=== PATIENT | female | born 1940 | race Caucasian/White ===

== ENCOUNTER 2019-08-06 18:14 | Emergency (ER) | payer MEDICARE, OTHER ==
[~2019-08-06] VITALS: Ht 165.1 cm; Wt 67.1 kg
[2019-08-06] MEDS ORDERED: CLONIDINE HCL 0.1 MG TABLET PO ONE ×2 (18:45→19:00)
[2019-08-06] MEDS ORDERED: CLONIDINE HCL 0.1 MG TABLET ONE (18:49)
[2019-08-06 18:51] LABS: *BILIRUBIN,URIN NEGATIVE (NEGATIVE); *BLOOD, URINE NEGATIVE (NEGATIVE); *CLARITY,URINE CLEAR (CLEAR); *COLOR,URINE LIGHT YELLOW (YELLOW); *KETONES,URINE NEGATIVE (NEGATIVE); *UROBILINOGEN,URINE 0.2 E.U./dl (NORMAL); LEUKOCYTE ESTERASE ,URINE NEGATIVE (NEGATIVE); NITRITE, URINE NEGATIVE (NEGATIVE); UGLUCOSE NEGATIVE (NEGATIVE)
[2019-08-06] MEDS ORDERED: ALPR0.5T PO (19:03)
[2019-08-06] MEDS ORDERED: SITA1TAB6 PO (19:03)
[2019-08-06] MEDS ORDERED: TELM1TAB2 PO (19:03)
[2019-08-06] MEDS ORDERED: XARELTO PO (19:03)
--- NOTE | 2019-08-06 19:05 | NUR ---
SHIFT REPORT GIVEN TO ENEIDA Jin RN.
--- NOTE | 2019-08-06 19:35 | NUR ---
Patient discharged to home in stable conditon. Written and verbal after care instructions given. Patient verbalizes understanding of instructions. Patient discharged home with exit care package and personal belongings. All taken by patient. patient daughter at bedside. Patient ambulatory with steady gait. patient denies and pain or distress at this time.
[2019-08-06 19:52] VITALS: BP 150/61
== END 2019-08-06 19:36 | disposition home or self-care (01) ==
LOC: ER 18:14
DX: I10 Essential (primary) hypertension (principal); R20.2 Paresthesia of skin; E11.9 Type 2 diabetes mellitus without complications; F41.9 Anxiety disorder, unspecified; Z79.899 Other long term (current) drug therapy
CPT/HCPCS: 93005; A4663